=== PATIENT | male | born 1990 | race Caucasian/White ===

== ENCOUNTER → 2021-04-08 | Outpatient (CLI) | payer SELFPAY ==
[2021-04-08 18:29] LABS: SEMEN VOLUME 1.8 ML (1.5-5.0)
== END ==
LOC: LAB 17:42
PROVIDERS: ATTEND Obstetrics & Gynecology Gynecology
DX: N46.9 Male infertility, unspecified (principal)
CPT/HCPCS: 89320

== ENCOUNTER → 2021-06-30 | Outpatient (CLI) | payer SELFPAY ==
[2021-06-30 18:05] LABS: SEMEN VOLUME 2.2 ML (1.5-5.0)
== END ==
LOC: LAB 16:45
PROVIDERS: ATTEND Urology
DX: N46.9 Male infertility, unspecified (principal)
CPT/HCPCS: 89320